=== PATIENT | male | born 1955 | race Caucasian/White ===

== ENCOUNTER → 2018-11-25 | Outpatient (REF) ==
[~2018-11-25] MED LIST: ALEVE220 MG PO; ASPIRIN81 MG PO; LASIX 20 MG TAB20 MG PO; LISINOPRIL/HYDR1 TA1 PO; PERCOCET 10/31 COMBO PO; POTASSIUM CHLO20 MEQ PO; SIMVASTATIN10 MG PO; TYLENOL650 MG PO; ZESTORETIC 10-11 TAB
== END | disposition home or self-care (01) | DRG 951 ==
LOC: PAGE 14:30
PROVIDERS: ATTEND Nurse Practitioner Family
DX: Z02.9 Encounter for administrative examinations, unspecified (principal)

== ENCOUNTER 2021-03-08 10:00 | Observation (INO) | payer BC ==
[~2021-03-08] VITALS: Ht 162.6 cm; Wt 119.0 kg
[2021-03-08] VITALS (8 sets, daily range): BP systolic 119–145; BP diastolic 49–91
--- NOTE | 2021-03-08 10:00 | NUR ---
TO ROOM FOR TRIAGE
[2021-03-08 10:31] LABS: HEMATOCRIT 43.2 % (39.0-50.0); HEMOGLOBIN 13.7 g/dl (14.0-18.0); IMMATURE GRANULOCYTES 0.4 % (0.0-5.0); MEAN CELL VOLUME 91.5 fL CALC (80.0-100.0); MEAN CORPUSCULAR HGB CONC 31.7 g/dL CAL (32.0-36.0); NEUT# 7.61 thou/uL (1.82-7.42); RED BLOOD COUNT 4.72 mill/uL (4.70-6.10); RED CELL DISTRI WIDTH 14.6 % (11.5-15.5)
[2021-03-08 10:38] LABS: URINE BILIRUBIN - DIPSTICK NEGATIVE (NEGATIVE); URINE BLOOD DIPSTICK SMALL (NEGATIVE); URINE COLOR YELLOW; URINE GLUCOSE - DIPSTICK NEGATIVE (NEGATIVE); URINE KETONE NEGATIVE (NEGATIVE); URINE LEUK ESTERASE LARGE (NEGATIVE); URINE NITRITE - DIPSTICK POSITIVE (Negative); URINE PROTEIN - DIPSTICK TRACE mg/dL (NEG-TRACE); URINE SPECIFIC GRAVITY 1.025; URINE UROBILINOGEN - DIPSTICK 0.2 E.U./dL (0.2)
[2021-03-08 10:52] LABS: ALBUMIN 4.4 g/dL (3.2-5.0); ALKALINE PHOSPHATASE 82 u/l (38-126); ANION GAP 12 (6-22 (CALC)); BILIRUBIN, TOTAL 0.4 mg/dL (0.0-1.4); BUN 17 mg/dL (8-23); BUN/CREATININE RATIO 17 (12-20 (CALC)); CARBON DIOXIDE 27 mmol/l (22-30); CHLORIDE 104 mmol/l (95-108); GFR > 60 ML/MIN (>=60 (CALC)); GFR FOR AFR.AMER. > 60 ML/MIN (>=60 (CALC)); LIPASE 43 u/l (23-300); POTASSIUM 4.3 mmol/l (3.5-5.1); SGOT/AST 37 u/l (19-48); SODIUM 138 mmol/l (137-146); TOTAL PROTEIN 8.1 g/dL (6.3-8.2)
[2021-03-08 10:55] LABS: URINE WBC >100 WBC/hpf (0-5)
--- NOTE | 2021-03-08 11:00 | NUR ---
RESTING ON STRETCHER. CALL MURRAY WITHIN REACH
--- NOTE | 2021-03-08 11:49 | NUR ---
PLAN TO ADMIT. PT RESTING ON STRETCHER. AWAITING ROOM ASSIGNMENT
--- NOTE | 2021-03-08 12:29 | NUR ---
ATTMEPTED TO CALL REPORT TO MED SURG. RN FREDERICK AT PRESENT. WILL CALL BACK. PT RESTING ON STRETCHER. CALL MURRAY WITHIN REACH
--- NOTE | 2021-03-08 13:25 | NUR ---
REPORT REC FROM BO NOEL
--- NOTE | 2021-03-08 13:25 | NUR ---
REPORT GIVEN TO BERT GODDARD. PT TO BE TRANSFERRED TO MED SURG
--- NOTE | 2021-03-08 13:33 | NUR ---
PT ARRIVED VIA WC ACCOMPANIED BY Joel MCKEON RN. A&O X4. NO DISTRESS NOTED. PT DENIES ANY PAIN AT THIS TIME. NPO STATUS REINFORCED. UPDATED PT ON ETA ON SURGICAL PROCEDURE, PT VERBALIZED UNDERSTANDING. REPORTS A FALL ABOUT A WEEK AGO, DENIES THE USE OF ANY AMBULATORY DEVICES AT HOME. CLEAR BREATH SOUNDS HEARD UPON AUSCULTATION. PT REPORTS SLEEP APNEA, NO CPAP HOME MACHINE AT BEDSIDE, O2 TO BE PLACED IF NEEDED. CLEAR BREATH SOUNDS HEARD UPON AUSCULTATION. ACTIVE BOWEL SOUNDS HEARD UPON AUSCULTATION. STRONG PEDAL PULSES. ORIENTED PT TO ROOM. ASSESSMENT COMPLETED. DISCUSSED POC.
--- NOTE | 2021-03-08 14:50 | NUR ---
PT TAKEN VIA STRETCHER ACCOMPANIED BY LORENZA NOEL IN STABLE CONDITION
--- NOTE | 2021-03-08 19:00 | NUR ---
PATIENT RETURNED TO FLOOR FROM PACU VIA STRETCHER WITH PACU STAFF IN ATTENDANCE. PATIENT TRANSFERRED FROM STRETCHER TO THE BED. PATIENT IS AWAKE ALERT AND ORIENTEDX3. PATIENT WITH CBI IN PLACE VIA 3-WAY RANGEL CATH CURRENTLY DRAINING CLEAR URINE. PATIENT WITH IV SITE TO LEFT AC INTACT AND IVF PATENT AND INFUSING AT 125CC/HR. LENIN SCD'S APPLIED. ORIENTED TO ROOM AND SURRONDINGS.O2 VIA NASAL CANNULA IN PLACE AT 2LPM. O2 SAT CURRENTLY 94%. PTIENT STATES THAT HE DOES WEAR C-PAP AT NIGHT AND WILL HAVE FAMILY BRING IT IN SO HE CAN USE IT TONIGHT. PROVIDED ICE CHIPS AT THIS TIME-WILL ADVANCE TOLERATED. SAFETY PRECAUTIONS REINFORCED. CALL LIGHT IN REACH. WILL CONT TO MONITOR.
--- NOTE | 2021-03-08 20:30 | NUR ---
PATIENT RESTING IN BED-TAKING PO ICE CHIPS AND TOLERATING WELL. PATIENT IS C/O BACK PAIN AND HAVING SEVERE SHAKES. MEDICATED WITH DILAUDID 1MG IVP FOR PAIN. IVF NS PATENT AND INFUSING VIA LEFT AC SITE AT 125CC/HR. CBI PATENT AND DRAINING LIGHT PEACH COLORED URINE AT THIS TIME. NO CLOTS NOTED. SCD'S IN PLACE. SAFETY PRECAUTIONS REINFORCED. CALL LIGHT IN REACH. WILL CONT TO MONITOR.
[2021-03-09] VITALS: BP 116/67
--- NOTE | 2021-03-09 | NUR ---
PATIENT RESTING IN BED AT THIS TIME WITH EYES CLOSED. HOME C-PAP IN PLACE. CBI DRAINING PALE PEACH URINE-NO CLOTS NO SEDIMENT AT THIS TIME. IVF PATENT AND INFUSING VIA LEFT AC SITE AT 125CC/HR. CALL LIGHT IN REACH. WILL CONT TO MONITOR.
--- NOTE | 2021-03-09 03:59 | NUR ---
PATIENT RESTING IN BED AT THIS TIME WITH C-PAP IN PLACE-O2 SAT IS 95% AT THIS TIME. RANGEL CATH CARE WAS DONE USING SOAP AND WATER-SMALL AMT OF OLD BLOODY DRAINAGE FROM OR PROCEDURE. CBI REMAINS IN PLACE AND DRAINING LIGHT PEACH COLORED URINE. IVF NS PATENT AND INFUSING VIA LAC AT 125CC/HR. ENCOURAGED PO FLUIDS-TOLERATING WELL. NO PAIN AT THIS TIME. CALL LIGHT IN REACH. WILL CONT TO MONITOR.
[2021-03-09 04:00] VITALS: BP 128/71
--- NOTE | 2021-03-09 06:27 | NUR ---
PATIENT RESTING IN BED WITH C-PAP IN PLACE AND EYES CLOSED. RESPS ARE EVEN AND UNLABORED. CBI IN PROGRESS DRAINING CLEAR URINE AT THIS TIME. IVF NS PATENT AND INFUSING VIA LAC SITE AT 125CC/HR, SITE REMAINS HEALTHY. CALL LIGHT IN REACH. WILL CONT TO MONITOR.
[2021-03-09 07:54] VITALS: BP 129/71
--- NOTE | 2021-03-09 07:54 | NUR ---
PT SLEEPING IN BED WITH HOME CPAP IN PLACE. AWAKENED TO COMPLETE ASSESSMENT. A&O X4. NO DISTRESS NOTED. PT DENIES ANY PAIN, JUST SOME SORENESS IN HIS THROAT. CLEAR BREATH SOUNDS UPON AUSCULTATION. ACTIVE BOWEL SOUNDS X4 QUADRANTS. CBI IN PLACE, YELLOW URINE NOTED IN COLLECTION BAG. PER MD ORDERS, CBI TO BE STOPPED AT 8AM, MONITOR FOR URINE AND IF PT TO BE D/C RANGEL NOT TO BE REMOVED. PT INFORMED ON PLAN, PT AGREEABLE. 600 CC OF URINE EMPTIED FROM RANGEL COLLECTION BAD. ASSESSMENT COMPLETED. DISCUSSED POC. CALL LIGHT AND PERSONAL BELONGINGS WITHIN REACH.
--- NOTE | 2021-03-09 08:00 | NUR ---
CBI STOPPED AT THIS TIME.
--- NOTE | 2021-03-09 10:42 | NUR ---
DR SAMANO AT BEDSIDE DISCUSSING POC AND POSS D/C PLANNING
[2021-03-09] MEDS ORDERED: CIPROFLOXACN500 MG PO (10:49)
[2021-03-09] MEDS ORDERED: MOTRIN800 MG PO (10:50)
[2021-03-09] MEDS ORDERED: LORTAB5 PO (10:50)
--- NOTE | 2021-03-09 13:08 | NUR ---
CATHETER COLLECTION BAG CHANGED TO A LEG BAG, PT EDUCATED AND SHOWN HOW TO EMPTY CATHETER BAG. OTHER CATHETER COLLECTION BAG GIVEN TO USE AT NIGHT TIME, PT VERABLIZED UNDERSTANDING, EXPLAINED TO PT IF HE NEEDED ASSISTANCE OR FINDING DIFFICULTY TO CHANGE CATHETER BAGS TO CALL THE UNIT TO HELP HIM ESTABLISH HH IF NEEDED.
--- NOTE | 2021-03-09 13:13 | NUR ---
CASE MANAGEMENT NATE NOTIFIED OF PT POSSIBLY NEEDING HOME HEALTH IF DIFFICULTY WAS FOUND WITH CHANGING OUT RANGEL COLLECTION BAGS.
--- NOTE | 2021-03-09 13:25 | NUR ---
D/C INSTRUCTIONS GIVEN TO PT. PT VERBALIZED UNDERSTANDING.
--- NOTE | 2021-03-09 15:16 | NUR ---
Discharge instructions given. Patient verbalizes understanding of same. Discharged in stable condition via Wheelchair to Home with staff. All belongings sent with pt. Pt encouraged to return if new or worsening symtptoms. Pt also encouraged to notify Dr. Swartz of hematuria or difficulty urinating. Information of Dr. Smith office provided. Pt also given hospital number if he needs home healt.
== END 2021-03-09 15:16 | disposition home or self-care (01) | DRG 660 ==
LOC: ED 10:00 → ED-I 11:16 → ED 11:32 → MS2 11:33
PROVIDERS: Family Medicine; ADMIT Internal Medicine; ATTEND Internal Medicine
PROC: 0T778DZ Dilation of Left Ureter with Intraluminal Device, Via Natural or Artificial Opening Endoscopic (ICD-10-PCS; principal; 2021-03-08)
PROC: 0TND8ZZ Release Urethra, Via Natural or Artificial Opening Endoscopic (ICD-10-PCS; 2021-03-08)
PROC: BT1FZZZ Fluoroscopy of Left Kidney, Ureter and Bladder (ICD-10-PCS; 2021-03-08)
DX: N13.6 Pyonephrosis (principal); Z68.42 Body mass index [BMI] 45.0-49.9, adult; N35.912 Unspecified bulbous urethral stricture, male; E66.9 Obesity, unspecified; I10 Essential (primary) hypertension; G47.30 Sleep apnea, unspecified; Z79.82 Long term (current) use of aspirin; Z20.822 Contact with and (suspected) exposure to COVID-19
CPT/HCPCS: C1769; G0378; J0131; J2710; Q9967

== ENCOUNTER 2022-11-20 16:11 | Emergency (ER) | payer MEDICARE ==
[~2022-11-20] VITALS: Ht 162.6 cm; Wt 118.2 kg
[~2022-11-20 16:11] MED LIST changes: +CIPROFLOXACN500 MG PO; +LORTAB5 PO; +MOTRIN800 MG PO
[2022-11-20 17:41] VITALS: BP 140/71
[2022-11-20 17:45] VITALS: BP 154/88
[2022-11-20] MEDS ORDERED: ASPIRIN 81 LOW81 MG PO (17:49)
[2022-11-20 18:44] LABS: BASO% 0.3 % (0-3); EOS% 3.4 % (0-8); HEMATOCRIT 41.9 % (39.0-50.0); HEMOGLOBIN 13.3 g/dl (14.0-18.0); IMMATURE GRANULOCYTES 0.3 % (0.0-5.0); LYMPH% 38.1 % (15-41); MEAN CELL VOLUME 90.1 fL CALC (80.0-100.0); MEAN CORPUSCULAR HGB 28.6 pG CALC (26.0-32.0); MEAN CORPUSCULAR HGB CONC 31.7 g/dL CAL (32.0-36.0); MONO% 16.1 % (2-13); NEUT# 2.59 thou/uL (1.82-7.42); NEUT% 41.8 % (42-76); RED BLOOD COUNT 4.65 mill/uL (4.70-6.10); RED CELL DISTRI WIDTH 14.3 % (11.5-15.5)
[2022-11-20 18:47] LABS: URINE BILIRUBIN - DIPSTICK NEGATIVE (NEGATIVE); URINE BLOOD DIPSTICK LARGE (NEGATIVE); URINE COLOR YELLOW; URINE GLUCOSE - DIPSTICK NEGATIVE (NEGATIVE); URINE KETONE NEGATIVE (NEGATIVE); URINE PH 6.5 (4.5-8.0); URINE PROTEIN - DIPSTICK TRACE mg/dL (NEG-TRACE); URINE SPECIFIC GRAVITY 1.025; URINE UROBILINOGEN - DIPSTICK 0.2 E.U./dL (0.2)
[2022-11-20 18:55] LABS: ALBUMIN 4.1 g/dL (3.2-5.0); ALKALINE PHOSPHATASE 67 u/l (38-126); ANION GAP 11 (6-22 (CALC)); BUN 12 mg/dL (8-23); BUN/CREATININE RATIO 14 (12-20 (CALC)); CARBON DIOXIDE 25 mmol/l (22-30); CHLORIDE 107 mmol/l (95-108); CREATININE 0.9 mg/dL (0.7-1.3); GFR FOR AFR.AMER. > 60 ML/MIN (>=60 (CALC)); GFR OTHER RACES > 60 ML/MIN (>=60 (CALC)); POTASSIUM 4.2 mmol/l (3.5-5.1); SGOT/AST 33 u/l (19-48); SODIUM 138 mmol/l (137-146); TOTAL PROTEIN 7.1 g/dL (6.3-8.2)
[2022-11-20 18:59] LABS: BILIRUBIN, TOTAL 0.2 mg/dL (0.2-1.3)
[2022-11-20 19:02] LABS: URINE LEUK ESTERASE LARGE (NEGATIVE); URINE NITRITE - DIPSTICK NEGATIVE (Negative)
[2022-11-20 19:12] LABS: URINE WBC >100 WBC/hpf (0-5)
[2022-11-20] MEDS ORDERED: MIRALAX17 GM PO (19:20)
[2022-11-20] MEDS ORDERED: CITRATE OF MEGNESIA PO (19:20)
[2022-11-20 20:20] VITALS: BP 154/88
== END 2022-11-20 20:27 | disposition home or self-care (01) ==
LOC: ED 16:11
PROVIDERS: Family Medicine
DX: K59.00 Constipation, unspecified (principal)

== ENCOUNTER 2023-02-02 23:05 | Emergency (ER) | payer MEDICARE ==
[~2023-02-02] VITALS: Ht 162.6 cm; Wt 113.0 kg
[~2023-02-02 23:05] MED LIST changes: +ASPIRIN 81 LOW81 MG PO; +CITRATE OF MEGNESIA PO; +MIRALAX17 GM PO
[2023-02-02] MEDS ORDERED: BACTRIM DS1 TAB PO (23:28)
[2023-02-02 23:39] VITALS: BP 122/80
== END 2023-02-02 23:46 | disposition home or self-care (01) ==
LOC: ED 23:05
DX: L03.114 Cellulitis of left upper limb (principal); I10 Essential (primary) hypertension

== ENCOUNTER 2024-10-14 08:27 | Observation (INO) | payer MEDICARE ==
[2024-10-14] VITALS (29 sets, daily range): BP systolic 85–155; BP diastolic 46–98
[~2024-10-14] VITALS: Ht 160 cm; Wt 121.1 kg
[~2024-10-14 08:27] MED LIST changes: +ATORVASTATIN CA10 MG PO; +BACTRIM DS1 TAB PO; +TRAMADOL HYDROC50 M1
[2024-10-14 09:17] LABS: BASO% 0.3 % (0-3); EOS% 2.6 % (0-8); HEMATOCRIT 39.2 % (39.0-50.0); HEMOGLOBIN 12.3 g/dl (14.0-18.0); IMMATURE GRANULOCYTES 0.4 % (0.0-5.0); LYMPH% 20.5 % (15-41); MEAN CELL VOLUME 92.9 fL CALC (80.0-100.0); MEAN CORPUSCULAR HGB 29.1 pG CALC (26.0-32.0); MEAN CORPUSCULAR HGB CONC 31.4 g/dL CAL (32.0-36.0); NEUT# 6.14 thou/uL (1.82-7.42); NEUT% 67.2 % (42-76); RED BLOOD COUNT 4.22 mill/uL (4.70-6.10); RED CELL DISTRI WIDTH 15.7 % (11.5-15.5)
[2024-10-14 09:21] LABS: URINE BILIRUBIN - DIPSTICK Negative (NEGATIVE); URINE BLOOD DIPSTICK Large (NEGATIVE); URINE GLUCOSE - DIPSTICK Negative (NEGATIVE); URINE KETONE Negative (NEGATIVE); URINE NITRITE - DIPSTICK Negative (Negative); URINE PROTEIN - DIPSTICK >=300 mg/dL (NEG-TRACE); URINE SPECIFIC GRAVITY 1.025; URINE UROBILINOGEN - DIPSTICK 0.2 E.U./dL (0.2)
[2024-10-14 09:22] LABS: URINE COLOR Red; URINE LEUK ESTERASE Small (NEGATIVE)
[2024-10-14 09:23] LABS: URINE RBC TNTC RBC/hpf (0-5)
[2024-10-14 09:25] LABS: URINE BACTERIA FEW hpf
[2024-10-14 09:36] LABS: CREATININE 0.9 mg/dL (0.7-1.3); POTASSIUM 4.1 mmol/l (3.5-5.1); TOTAL PROTEIN 7.3 g/dL (6.3-8.2)
[2024-10-14 09:57] LABS: BILIRUBIN, TOTAL 0.4 mg/dL (0.2-1.3)
[2024-10-14] MEDS ORDERED: SODIUM CHLORIDE 3,000 ML BAG FOR IRRIGATION IR ONE ×2 (10:50→17:55)
[2024-10-14] MEDS ORDERED: STERILE WATER FOR IRRIGATION 1,000 ML BTL IR ONE ×2 (11:45→17:55)
[2024-10-14] MEDS ORDERED: cefTRIAXone SODIUM 2 GM in SODIUM CHLORIDE 0.9% 100 ML IV ONE (12:15)
[2024-10-14] MEDS ORDERED: SODIUM CHLORIDE 0.9% 10 ML SYR ONE (15:40)
[2024-10-14] MEDS ORDERED: LACTATED RINGER'S 1,000 ML IV ONE (15:41)
[2024-10-14] MEDS ORDERED: FAMOTIDINE 10MG/ML 2ML SDV IV ONE (15:46)
[2024-10-14] MEDS ORDERED: ACETAMINOPHEN 325 MG/TAB PO PRN (16:25)
[2024-10-14] MEDS ORDERED: MAGNESIUM HYDROXIDE 30 ML UDC PO PRN (16:25)
[2024-10-14] MEDS ORDERED: SODIUM CHLORIDE 0.9% 1,000 ML IV PRN (16:25)
[2024-10-14] MEDS ORDERED: PROPOFOL 200 MG/20 ML VIAL IV ONE (16:44)
[2024-10-14] MEDS ORDERED: LIDOCAINE HCL 2% 2ML SDV IV ONE (16:44)
[2024-10-14] MEDS ORDERED: LACTATED RINGER'S 1,000 ML BAG IV ONE (16:44)
[2024-10-14] MEDS ORDERED: SODIUM CHLORIDE 1,000 ML BTL IR ONE (17:55)
[2024-10-14] MEDS ORDERED: MORPHINE SULFATE 4 MG/ML VIAL ONE (18:11)
[2024-10-14 22:42] LABS: HEMATOCRIT 32.5 % (39.0-50.0); HEMOGLOBIN 10.3 g/dl (14.0-18.0)
[2024-10-14] MEDS ORDERED: LACTATED RINGER'S 1,000 ML IV PRN ×2 (22:45)
[2024-10-14] MEDS ORDERED: SODIUM CHLORIDE 0.9% 500 ML IV PRN (23:05)
[2024-10-15] VITALS (10 sets, daily range): BP systolic 120–148; BP diastolic 52–69
[2024-10-15] MEDS ORDERED: SODIUM CHLORIDE 3,000 ML BAG FOR IRRIGATION IR PRN (02:55)
[2024-10-15 05:49] LABS: BASO% 0.2 % (0-3); EOS% 0.2 % (0-8); HEMATOCRIT 35.7 % (39.0-50.0); HEMOGLOBIN 11.2 g/dl (14.0-18.0); IMMATURE GRANULOCYTES 0.3 % (0.0-5.0); LYMPH% 13.2 % (15-41); MEAN CELL VOLUME 94.2 fL CALC (80.0-100.0); MEAN CORPUSCULAR HGB 29.6 pG CALC (26.0-32.0); MEAN CORPUSCULAR HGB CONC 31.4 g/dL CAL (32.0-36.0); MONO% 8.5 % (2-13); NEUT# 11.92 thou/uL (1.82-7.42); NEUT% 77.6 % (42-76); RED BLOOD COUNT 3.79 mill/uL (4.70-6.10); RED CELL DISTRI WIDTH 16.2 % (11.5-15.5)
[2024-10-15 06:16] LABS: BILIRUBIN, TOTAL 0.5 mg/dL (0.2-1.3); CREATININE 0.7 mg/dL (0.7-1.3); MAGNESIUM 2.2 mg/dL (1.6-2.3); POTASSIUM 4.5 mmol/l (3.5-5.1)
[2024-10-15 06:26] LABS: ALBUMIN 3.1 g/dL (3.2-5.0)
[2024-10-16] VITALS (9 sets, daily range): BP systolic 127–140; BP diastolic 56–81
[2024-10-16 05:22] LABS: BASO% 0.3 % (0-3); HEMATOCRIT 33.3 % (39.0-50.0); HEMOGLOBIN 10.5 g/dl (14.0-18.0); IMMATURE GRANULOCYTES 0.3 % (0.0-5.0); LYMPH% 16.5 % (15-41); MEAN CELL VOLUME 93.8 fL CALC (80.0-100.0); MEAN CORPUSCULAR HGB 29.6 pG CALC (26.0-32.0); MEAN CORPUSCULAR HGB CONC 31.5 g/dL CAL (32.0-36.0); NEUT# 8.33 thou/uL (1.82-7.42); NEUT% 70.9 % (42-76); RED BLOOD COUNT 3.55 mill/uL (4.70-6.10); RED CELL DISTRI WIDTH 16.3 % (11.5-15.5)
[2024-10-16 05:35] LABS: ALBUMIN 3.1 g/dL (3.2-5.0); BILIRUBIN, TOTAL 0.3 mg/dL (0.2-1.3); CREATININE 0.8 mg/dL (0.7-1.3); TOTAL PROTEIN 5.9 g/dL (6.3-8.2)
[2024-10-16] MEDS ORDERED: SODIUM CHLORIDE 0.9% 1,000 ML BAG IR PRN (17:40)
[2024-10-17] MEDS ORDERED: SODIUM CHLORIDE 1,000 ML BTL IR ONE (00:40)
[2024-10-17 00:49] VITALS: BP 138/76
[2024-10-17 00:58] VITALS: BP 138/76
[2024-10-17 04:04] VITALS: BP 134/64
[2024-10-17 05:06] LABS: BASO% 0.3 % (0-3); EOS% 3.4 % (0-8); HEMATOCRIT 31.9 % (39.0-50.0); HEMOGLOBIN 10.2 g/dl (14.0-18.0); IMMATURE GRANULOCYTES 0.4 % (0.0-5.0); MEAN CELL VOLUME 91.9 fL CALC (80.0-100.0); MEAN CORPUSCULAR HGB 29.4 pG CALC (26.0-32.0); MONO% 11.2 % (2-13); NEUT# 6.82 thou/uL (1.82-7.42); NEUT% 66.7 % (42-76); RED BLOOD COUNT 3.47 mill/uL (4.70-6.10); RED CELL DISTRI WIDTH 15.8 % (11.5-15.5)
[2024-10-17 05:40] VITALS: BP 134/64
[2024-10-17 05:40] LABS: ALBUMIN 3.1 g/dL (3.2-5.0); BILIRUBIN, TOTAL 0.3 mg/dL (0.2-1.3); CREATININE 0.8 mg/dL (0.7-1.3); POTASSIUM 3.8 mmol/l (3.5-5.1); TOTAL PROTEIN 5.9 g/dL (6.3-8.2)
[2024-10-17 06:19] VITALS: BP 117/74
[2024-10-17] MEDS ORDERED: CIPROFLOXACN500 MG PO (10:00)
[2024-10-17 11:15] VITALS: BP 137/60
== END 2024-10-17 13:47 | disposition home or self-care (01) ==
LOC: ED 08:27 → ED-I 12:04 → ED 12:20 → MS2 12:21
PROVIDERS: Family Medicine; Internal Medicine; Nurse Practitioner Family; ADMIT Internal Medicine; ATTEND Internal Medicine
PROC: 0TCB8ZZ Extirpation of Matter from Bladder, Via Natural or Artificial Opening Endoscopic (ICD-10-PCS; principal; 2024-10-14)
PROC: 0W3R8ZZ Control Bleeding in Genitourinary Tract, Via Natural or Artificial Opening Endoscopic (ICD-10-PCS; 2024-10-14)
PROC: 30233N1 Transfusion of Nonautologous Red Blood Cells into Peripheral Vein, Percutaneous Approach (ICD-10-PCS; 2024-10-14)
DX: N30.91 Cystitis, unspecified with hematuria (principal); N32.3 Diverticulum of bladder; N42.1 Congestion and hemorrhage of prostate; N40.0 Benign prostatic hyperplasia without lower urinary tract symptoms; R33.8 Other retention of urine; I10 Essential (primary) hypertension; G47.30 Sleep apnea, unspecified; Z87.442 Personal history of urinary calculi; Z79.82 Long term (current) use of aspirin; Z20.822 Contact with and (suspected) exposure to COVID-19
CPT/HCPCS: J0696; P9016

== ENCOUNTER 2024-12-26 21:17 | Emergency (ER) | payer MEDICARE ==
[~2024-12-26] VITALS: Ht 160 cm; Wt 119.0 kg
[2024-12-26] MEDS ORDERED: LIDOCAINE HCL 2 % JELLY UR ONE (21:35)
[2024-12-26 22:20] LABS: BASO% 0.7 % (0-3); EOS% 2.9 % (0-8); HEMATOCRIT 38.7 % (39.0-50.0); HEMOGLOBIN 12.2 g/dl (14.0-18.0); IMMATURE GRANULOCYTES 0.1 % (0.0-5.0); MEAN CELL VOLUME 88.4 fL CALC (80.0-100.0); MEAN CORPUSCULAR HGB 27.9 pG CALC (26.0-32.0); MEAN CORPUSCULAR HGB CONC 31.5 g/dL CAL (32.0-36.0); MONO% 10.6 % (2-13); NEUT# 4.79 thou/uL (1.82-7.42); NEUT% 63.7 % (42-76); RED BLOOD COUNT 4.38 mill/uL (4.70-6.10); RED CELL DISTRI WIDTH 14.7 % (11.5-15.5)
[2024-12-26 22:32] LABS: CREATININE 0.8 mg/dL (0.7-1.3)
[2024-12-26 22:33] LABS: POTASSIUM 3.5 mmol/l (3.5-5.1)
[2024-12-26] MEDS ORDERED: SODIUM CHLORIDE 3,000 ML BAG FOR IRRIGATION IR ONE (23:30)
[2024-12-26] MEDS ORDERED: SODIUM CHLORIDE 0.9% FOR IRRIGATION 250 ML BTL IR ONE (23:50)
[2024-12-26] MEDS ORDERED: SODIUM CHLORIDE 1,000 ML BTL IR ONE (23:55)
[2024-12-27 00:27] LABS: URINE BLOOD DIPSTICK Large (NEGATIVE); URINE GLUCOSE - DIPSTICK 100 mg/dL (NEGATIVE); URINE KETONE 80 mg/dL (NEGATIVE); URINE PH >=9.0 (4.5-8.0); URINE PROTEIN - DIPSTICK >=300 mg/dL (NEG-TRACE); URINE SPECIFIC GRAVITY <=1.005; URINE UROBILINOGEN - DIPSTICK >=8.0 E.U./dL (0.2)
[2024-12-27 00:28] LABS: URINE COLOR Red; URINE LEUK ESTERASE Large (NEGATIVE)
[2024-12-27 00:31] LABS: URINE NITRITE - DIPSTICK Negative (Negative); URINE RBC >100 RBC/hpf (0-5); URINE WBC >100 WBC/hpf (0-5)
[2024-12-27 00:32] LABS: URINE BACTERIA MODERATE hpf; URINE EPITHELIAL CELLS MODERATE EPI/hpf (0-FEW)
[2024-12-27] MEDS ORDERED: CIPROFLOXACIN HCL 500 MG/TAB PO ONE (00:40)
[2024-12-27] MEDS ORDERED: TRANEXAMIC ACID 100 MG/ML 10ML IV ONE (02:25)
[2024-12-27] MEDS ORDERED: SODIUM CHLORIDE 0.9% 1,000 ML IV ONE (02:25)
[2024-12-27 03:38] VITALS: BP 127/63
== END 2024-12-27 03:38 | disposition short-term general hospital (02) ==
LOC: ED 21:17
PROVIDERS: Family Medicine
PROC: 0T9B70Z Drainage of Bladder with Drainage Device, Via Natural or Artificial Opening (ICD-10-PCS; principal; 2024-12-26)
DX: R31.9 Hematuria, unspecified (principal); N39.0 Urinary tract infection, site not specified; N40.0 Benign prostatic hyperplasia without lower urinary tract symptoms; N32.3 Diverticulum of bladder; I10 Essential (primary) hypertension